=== PATIENT | male | born 1945 | race Caucasian/White ===

== ENCOUNTER → 2016-06-19 | Outpatient (CLI) | payer MEDICARE ==
[~2016-06-19] MED LIST: ALEVE220 MG PO; HYDROCODON-ACE1 EAC8 PO; MEN 50 PLUS MU1 EACH PO; OMEGA 3-6-9 11200 MG PO; SLEEP AID50 MG PO
== END | disposition home or self-care (01) ==
LOC: CDC 14:03
DX: Z01.810 Encounter for preprocedural cardiovascular examination (principal); I71.4 Abdominal aortic aneurysm, without rupture
CPT/HCPCS: 93000

== ENCOUNTER 2016-06-26 11:58 | Inpatient (IN) | payer OTHER, MEDICARE ==
[~2016-06-26] VITALS: Ht 165.1 cm; Wt 75.3 kg
[2016-06-26 12:32] VITALS: BP 173/85
[2016-06-26 16:46] LABS: CK-MB 3.1 ng/mL (0.0-4.9)
[2016-06-26 17:05] LABS: CREATINE KINASE 181 IU/L (1-294); TOTAL CK 181 IU/L (1-294)
[2016-06-26 18:32] VITALS: BP 139/73
[2016-06-26 19:27] VITALS: BP 115/54
[2016-06-26 22:28] VITALS: BP 133/62
[2016-06-27 03:24] VITALS: BP 105/55
[2016-06-27 06:46] LABS: HEMATOCRIT 37.6 % (38.0-50.0); MCH 33.6 PG (29.0-34.0); MCHC 34.6 G/DL (30.0-36.0); PLATELET COUNT 200 K/uL (156-360); RBC DIS.WIDTH-CV 12.3 % (11.8-14.6); RBC DIS.WIDTH-SD 44.1 % (39-53); RED BLOOD COUNT 3.87 M/uL (4.00-5.50)
[2016-06-27 06:50] LABS: MCV 97.2 FL (86-99); WHITE BLOOD COUNT 13.9 K/uL (4.1-10.2)
[2016-06-27 07:09] VITALS: BP 133/63
[2016-06-27 07:12] LABS: ANION GAP 8 MEQ/L (2-14); CHLORIDE 103 MEQ/L (99-109); CREATINE KINASE 134 IU/L (1-294); GFR ESTIMATE (CALCULATED) > 59 mL/min/; GLUCOSE 98 mg/dL (70-99); POTASSIUM 4.2 MEQ/L (3.7-5.4); SAMPLE HEMOLYSIS CHECK 0; SAMPLE ICTERIC CHECK 0; SAMPLE LIPEMIA CHECK 0; SODIUM 138 MEQ/L (136-147); TOTAL CK 134 IU/L (1-294); UREA NITROGEN (BUN) 15 mg/dL (9-23)
[2016-06-27 07:34] LABS: CK-MB 1.6 ng/mL (0.0-4.9)
== END 2016-06-27 11:13 | disposition home or self-care (01) | DRG 269 ==
LOC: 2SOUTH → 4EAST 18:10
PROVIDERS: Surgery
PROC: 04V03E6 (ICD-10-PCS; principal; 2016-06-26)
DX: I71.4 Abdominal aortic aneurysm, without rupture (principal); Z87.891 Personal history of nicotine dependence
CPT/HCPCS: 80048; 82550; 82553; 85027; 93005; C1725; C1769; C1894; J0131; J0690; J1100; J1170; J1644; J1650; J2250; J2405; J2720; J3010; J7120